=== PATIENT | female | born 1990 ===

== ENCOUNTER → 2017-11-28 | Outpatient (CLI) | payer BC ==
[~2017-11-28] MED LIST: Phenergan Vc-C120 ML PO; Prednisone20 MG PO; Zithromax250 MG PO
[2017-11-29 14:32] LABS: Source VAG/CERV
== END | disposition home or self-care (01) ==
LOC: LAB 17:59
PROVIDERS: Advanced Practice Midwife
DX: Z01.419 Encounter for gynecological examination (general) (routine) without abnormal findings (principal); Z11.3 Encounter for screening for infections with a predominantly sexual mode of transmission
CPT/HCPCS: 87491; 87591; G0123

== ENCOUNTER → 2017-12-23 | Outpatient (CLI) | payer BC ==
[2017-12-23 10:09] LABS: Specimen Source URINE
[2017-12-24 04:18] LABS: Source Urine
== END | disposition home or self-care (01) ==
LOC: LAB 09:12
PROVIDERS: Advanced Practice Midwife
DX: Z11.3 Encounter for screening for infections with a predominantly sexual mode of transmission (principal)
CPT/HCPCS: 87491; 87591

== ENCOUNTER → 2018-02-07 | Outpatient (CLI) | payer BC ==
[2018-02-10 23:10] LABS: CHLAMYDIA TRACHOMATIS, NAA Negative (Negative); NEISSERIA GONORRHOEAE, NAA Negative (Negative)
== END ==
LOC: LAB 11:57 → LAB SHORT 11:57
PROVIDERS: Advanced Practice Midwife
DX: Z11.3 Encounter for screening for infections with a predominantly sexual mode of transmission (principal)
CPT/HCPCS: 87491; 87591

== ENCOUNTER → 2018-12-30 | Outpatient (CLI) | payer BC ==
[2018-12-31 11:07] LABS: Candida species (DNA Probe) Negative (NEGATIVE); G. vaginalis (DNA Probe) Positive (NEGATIVE); T. vaginalis (DNA Probe) Negative (NEGATIVE)
== END | disposition home or self-care (01) ==
LOC: LAB 18:45 → LAB SHORT 18:45
PROVIDERS: Advanced Practice Midwife
DX: N76.0 Acute vaginitis (principal)
CPT/HCPCS: 87480; 87510; 87660

== ENCOUNTER 2019-01-14 07:00 | Day surgery (SDC) | payer BC ==
[~2019-01-14] VITALS: Ht 170.2 cm; Wt 91.4 kg
--- NOTE | 2019-01-14 11:04 | NUR ---
01/14/19 1104 Ricardo Lopez DC INSTRUCTIONS REVIEWED W/ PATIENT, NO QUESTIONS AT THIS TIME. PATIENT WAITING FOR HER RIDE
== END 2019-01-14 10:20 | disposition home or self-care (01) ==
LOC: ORSCSDS 07:00
PROVIDERS: Otolaryngology
PROC: 0CTPXZZ Resection of Tonsils, External Approach (ICD-10-PCS; principal; 2019-01-14 08:15)
DX: J35.01 Chronic tonsillitis (principal)
CPT/HCPCS: 88304; J0330; J1100; J1885; J2250; J2405; J2704; J3010; J7120

== ENCOUNTER → 2020-11-06 | Outpatient (CLI) | payer BC ==
[2020-11-06 15:06] LABS: Free Thyroxine 0.6 ng/dL (0.70-1.60); Thyroid Stimulating Hormone 0.989 uIU/mL (0.360-4.800)
== END ==
LOC: LAB SHORT 14:34 → LAB EV 14:34
PROVIDERS: Internal Medicine Endocrinology, Diabetes & Metabolism
DX: E05.00 Thyrotoxicosis with diffuse goiter without thyrotoxic crisis or storm (principal)
CPT/HCPCS: 84439; 84443; 84481

== ENCOUNTER → 2022-01-18 | Outpatient (CLI) | payer BC ==
[2022-01-23 14:08] LABS: HPV 16 Negative (Negative); HPV 18 Negative (Negative); HPV OTHER HR TYPES Positive (Negative)
== END | disposition home or self-care (01) ==
LOC: LAB SHORT 18:13 → LAB 18:13
PROVIDERS: Family Medicine
DX: Z01.419 Encounter for gynecological examination (general) (routine) without abnormal findings (principal)
CPT/HCPCS: 87624; 87625; G0123

== ENCOUNTER → 2022-10-22 | Outpatient (CLI) | payer BC ==
[2022-10-22 14:39] LABS: Candida species (DNA Probe) Negative (NEGATIVE); G. vaginalis (DNA Probe) Negative (NEGATIVE); T. vaginalis (DNA Probe) Negative (NEGATIVE)
== END | disposition home or self-care (01) ==
LOC: LAB 10:33 → LAB SHORT 10:33
PROVIDERS: Obstetrics & Gynecology
DX: N89.8 Other specified noninflammatory disorders of vagina (principal)
CPT/HCPCS: 87480; 87510; 87660

== ENCOUNTER 2023-01-24 19:04 | Inpatient (IN) | payer BC ==
[~2023-01-24] VITALS: Ht 167.6 cm; Wt 114.0 kg
[2023-01-24 19:17] VITALS: BP 131/84
[2023-01-24] MEDS ORDERED: LEVSOD100 (20:02)
[2023-01-24] MEDS ORDERED: FAMO20 PO (20:03)
[2023-01-24] MEDS ORDERED: ASPI81CH PO (20:04)
[2023-01-24] MEDS ORDERED: PRENATAL TABLE1 EAC2 PO (20:04)
[2023-01-24 20:15] VITALS: BP 152/77
[2023-01-24 20:24] LABS: BASOPHILS ABSOLUTE AUTO 0.04 K/mm3 (0.00-0.23); BASOPHILS PERCENT AUTO 0 % (0-2); EOSINOPHILS ABSOLUTE AUTO 0.13 K/mm3 (0.00-0.68); EOSINOPHILS PERCENT AUTO 1 % (0-6); Hematocrit 35.1 % (33.0-51.0); Hemoglobin 11.9 g/dL (11.5-16.0); IMMATURE GRAN ABSOLUTE AUTO 0.04 K/mm3 (0.00-0.10); IMMATURE GRAN PERCENT AUTO 0 % (0-1); LYMPHOCYTES PERCENT AUTO 19 % (21-46); MONOCYTES ABSOLUTE AUTO 0.55 K/mm3 (0.16-1.47); MONOCYTES PERCENT AUTO 5 % (4-13); Mean Corpuscular HGB 26.4 pg (26.0-34.0); Mean Corpuscular HGB Conc 33.9 g/dL (31.5-36.5); Mean Corpuscular Volume 78 fL (80-100); Mean Platelet Volume 12.4 fL (9.1-12.4); NEUTROPHILS ABSOLUTE AUTO 8.25 K/mm3 (1.96-9.15); NEUTROPHILS PERCENT AUTO 74 % (41-73); Platelet Count 265 K/mm3 (150-400); RDW Coefficient Variation 14.2 % (11.7-14.2); RDW Standard Deviation 39.8 fL (35.1-46.3); White Blood Cell Count 11.11 K/mm3 (4.00-11.30)
[2023-01-24 23:20] VITALS: BP 152/72
[2023-01-25] VITALS (23 sets, daily range): BP systolic 119–168; BP diastolic 57–103
[2023-01-26] VITALS (11 sets, daily range): BP systolic 115–155; BP diastolic 60–86
[2023-01-26 06:48] LABS: Free Thyroxine 0.86 ng/dL (0.70-1.60); Thyroid Stimulating Hormone 2.7 uIU/mL (0.360-4.800); Triiodothyronine, Free 1.78 pg/mL (2.18-3.98)
[2023-01-27 00:14] VITALS: BP 128/73
[2023-01-27 03:33] VITALS: BP 148/74
[2023-01-27 07:22] VITALS: BP 149/81
[2023-01-27 11:05] VITALS: BP 147/83
== END 2023-01-27 17:26 | disposition home or self-care (01) | DRG 807 ==
LOC: OBS 19:04 → BC 19:06 → OBS 19:15 → BC 19:16
PROVIDERS: ADMIT Obstetrics & Gynecology
PROC: 10E0XZZ Delivery of Products of Conception, External Approach (ICD-10-PCS; principal; 2023-01-26)
PROC: 3E0R3BZ Introduction of Anesthetic Agent into Spinal Canal, Percutaneous Approach (ICD-10-PCS; 2023-01-26)
PROC: 00HU33Z Insertion of Infusion Device into Spinal Canal, Percutaneous Approach (ICD-10-PCS; 2023-01-26)
PROC: 0HQ9XZZ Repair Perineum Skin, External Approach (ICD-10-PCS; 2023-01-26)
PROC: 0U7C7ZZ Dilation of Cervix, Via Natural or Artificial Opening (ICD-10-PCS; 2023-01-26)
DX: O13.4 Gestational [pregnancy-induced] hypertension without significant proteinuria, complicating childbirth (principal); Z37.0 Single live birth; K21.9 Gastro-esophageal reflux disease without esophagitis; O99.62 Diseases of the digestive system complicating childbirth; O99.284 Endocrine, nutritional and metabolic diseases complicating childbirth; E03.9 Hypothyroidism, unspecified; O99.214 Obesity complicating childbirth; O99.824 Streptococcus B carrier state complicating childbirth; O69.1XX0 Labor and delivery complicated by cord around neck, with compression, not applicable or unspecified; O70.0 First degree perineal laceration during delivery; Z3A.37 37 weeks gestation of pregnancy; Z79.899 Other long term (current) drug therapy; Z98.890 Other specified postprocedural states; Z79.82 Long term (current) use of aspirin
CPT/HCPCS: 36415; 51702; 59200; 84439; 84443; 84481; 85025; 86850; 86900; 86901; A9270; J0290; J1885; J2210; J2270; J2405; J2550; J2590; J7120

== ENCOUNTER → 2023-03-07 | Outpatient (CLI) | payer BC ==
[~2023-03-07] MED LIST changes: +ASPI81CH PO; +FAMO20 PO; +LEVSOD100; +PRENATAL TABLE1 EAC2 PO
[2023-03-13 16:09] LABS: HPV 16 Negative (Negative); HPV 18 Negative (Negative); HPV OTHER HR TYPES Positive (Negative)
== END ==
LOC: LAB SHORT 11:49 → LAB 11:49
PROVIDERS: Obstetrics & Gynecology
DX: Z01.419 Encounter for gynecological examination (general) (routine) without abnormal findings (principal)
CPT/HCPCS: 87624; G0145

== ENCOUNTER → 2023-03-21 | Outpatient (CLI) | payer BC | END | disposition home or self-care (01) | LOC: LAB SHORT 12:47 → PLD 12:47 | DX: D26.0 Other benign neoplasm of cervix uteri (principal) | CPT/HCPCS: 88305 ==

== ENCOUNTER → 2024-03-10 | Outpatient (CLI) | payer BC ==
[2024-03-13 06:48] LABS: HPV HIGH RISK BY TMA Not Detected; HPV SOURCE Vaginal
== END ==
LOC: LAB SHORT 10:30 → LAB 10:30
PROVIDERS: Obstetrics & Gynecology
DX: Z01.419 Encounter for gynecological examination (general) (routine) without abnormal findings (principal)
CPT/HCPCS: 87624; G0123